=== PATIENT | female | born 2000 | race Two or more races ===

== ENCOUNTER 2020-07-24 15:12 | Emergency (ER) | payer OTHER ==
[~2020-07-24] VITALS: Ht 160 cm; Wt 100.1 kg
[2020-07-24 15:46] VITALS: BP 112/54
== END 2020-07-24 15:48 | disposition home or self-care (01) ==
LOC: ED 15:32
DX: S61.214A Laceration without foreign body of right ring finger without damage to nail, initial encounter (principal); X58.XXXA Exposure to other specified factors, initial encounter; Y93.89 Activity, other specified; Y92.89 Other specified places as the place of occurrence of the external cause; Y99.0 Civilian activity done for income or pay
CPT/HCPCS: 12001; 99281; 99282